=== PATIENT | female | born 1965 | race Caucasian/White ===

== ENCOUNTER 2017-12-26 16:53 | Emergency (ER) | payer BC ==
[~2017-12-26] VITALS: Ht 160 cm; Wt 78.0 kg
[2017-12-26 17:06] VITALS: BP 137/81; PULSE 98; RESP 17; TEMP 98.3; O2SAT 100
--- NOTE | 2017-12-26 17:43 | RADRPT ---
EXAM DATE/TIME: 12/26/2017 17:18 [place] COMPARISON: No previous studies available for comparison. INDICATIONS : Shortness of breath, cough, and syncope. MEDICAL HISTORY : None. SURGICAL HISTORY : None. ENCOUNTER: Initial ACUITY: 4 - 6 days PAIN SCORE: 2/10 LOCATION: Bilateral FINDINGS: PA and lateral views of the chest demonstrate the lungs to be symmetrically aerated without evidence of mass, infiltrate or effusion. The cardiomediastinal contours are unremarkable. Osseous structure s are intact. CONCLUSION: Normal examination. Neil Bruno MD on December 26, 2017 at 17:42 Board Certified Radiologist. This report was verified electronically.
[2017-12-26 17:53] LABS: AUTOMATED NEUTROPHIL # 10.6 TH/MM3 (1.8-7.7); BASOPHIL # 0.1 TH/MM3 (0-0.2); BASOPHIL % 0.6 % (0.0-2.0); EOSINOPHIL # 0.2 TH/MM3 (0-0.4); EOSINOPHIL % 1.1 % (0.0-4.0); HEMATOCRIT 43.1 % (35.0-46.0); LYMPH % 19.2 % (9.0-44.0); LYMPHOCYTE # 2.8 TH/MM3 (1.0-4.8); MEAN CELL VOLUME 86.7 FL (80.0-100.0); MEAN CORPUSCULAR HEMOGLOBIN 30.2 PG (27.0-34.0); MEAN CORPUSCULAR HGB CONC 34.8 % (32.0-36.0); MEAN PLATELET VOLUME 8.7 FL (7.0-11.0); MONO % 6.9 % (0.0-8.0); NEUT % 72.2 % (16.0-70.0); PLATELET COUNT 330 TH/MM3 (150-450); RED BLOOD COUNT 4.97 MIL/MM3 (4.00-5.30); RED CELL DISTRIBUTION WIDTH 13.4 % (11.6-17.2); WHITE BLOOD COUNT 14.7 TH/MM3 (4.0-11.0)
[2017-12-26 18:18] LABS: CALCIUM 9.3 MG/DL (8.5-10.1); CREATININE 0.86 MG/DL (0.50-1.00)
--- NOTE | 2017-12-26 18:49 | PD ---
HPI Chief Complaint: Medical Clearance Time Seen by Provider: 18:37 Travel History International Travel<30 days: No Contact w/Intl Traveler<30days: No Traveled to known affect area: No History of Present Illness HPI 52-year-old female complaining generalized malaise and weakness. Patient states the symptoms started several days ago. Patient denies any headache. Patient denies earache or sore throat. Patient denies any neck pain. Patient denies any coughing congestion. Patient denies any chest pain or shortness of breath. Patient denies abdominal pain. Patient denies any nausea vomiting diarrhea. Patient denies any dysuria or frequency. Patient denies any back pain. Patient denies any fever or chills. Patient states that she has good appetite. Patient was seen at local urgent care center and referred to ED for evaluation. Flu test was reported negative. Strep screen reportedly negative. Urine dipstick reportedly negative. PFSH Past Medical History Medical History: Denies Significant Hx ?: Unknown LMP: 12/09/17 Past Surgical History Surgical History: No Previous Surgery Social History Alcohol Use: No Tobacco Use: No Substance Use: No Allergies-Medications (Allergen,Severity, Reaction): Coded Allergies: miconazole (Verified Allergy, Intermediate, Rash, 12/26/17) Review of Systems General / Constitutional: No: Fever Eyes: No: Visual changes HENT: No: Headaches Cardiovascular: No: Chest Pain or Discomfort Respiratory: No: Shortness of Breath Gastrointestinal: No: Abdominal Pain Genitourinary: No: Dysuria Musculoskeletal: No: Pain Skin: No Rash Neurologic: No: Weakness Psychiatric: No: Depression Endocrine: No: Polydipsia Hematologic/Lymphatic: No: Easy Bruising Physical Exam Narrative GENERAL: Well-nourished, well-developed patient. SKIN: Focused skin assessment warm/dry. HEAD: Normocephalic. EYES: No scleral icterus. No injection or drainage. NECK: Supple, trachea midline. No JVD or lymphadenopathy. CARDIOVASCULAR: Regular rate and rhythm without murmurs, gallops, or rubs. RESPIRATORY: Breath sounds equal bilaterally. No accessory muscle use. GASTROINTESTINAL: Abdomen soft, non-tender, nondistended. MUSCULOSKELETAL: No cyanosis, or edema. BACK: Nontender without obvious deformity. No CVA tenderness. Neurologic exam normal. Data Data Last Documented VS Vital Signs Date Time Temp Pulse Resp B/P (MAP) Pulse Ox O2 Delivery O2 Flow Rate FiO2 12/26/17 18:34 16 12/26/17 17:06 98.3 98 137/81 (99) 100 Orders Orders Complete Blood Count With Diff (12/26/17 17:09) Basic Metabolic Panel (Bmp) (12/26/17 17:09) Chest, Pa & Lat (12/26/17 17:09) Urinalysis - C+S If Indicated (12/26/17 18:44) Labs Laboratory Tests Test 12/26/17 17:38 12/26/17 18:50 White Blood Count 14.7 TH/MM3 Red Blood Count 4.97 MIL/MM3 Hemoglobin 15.0 GM/DL Hematocrit 43.1 % Mean Corpuscular Volume 86.7 FL Mean Corpuscular Hemoglobin 30.2 PG Mean Corpuscular Hemoglobin Concent 34.8 % Red Cell Distribution Width 13.4 % Platelet Count 330 TH/MM3 Mean Platelet Volume 8.7 FL Neutrophils (%) (Auto) 72.2 % Lymphocytes (%) (Auto) 19.2 % Monocytes (%) (Auto) 6.9 % Eosinophils (%) (Auto) 1.1 % Basophils (%) (Auto) 0.6 % Neutrophils # (Auto) 10.6 TH/MM3 Lymphocytes # (Auto) 2.8 TH/MM3 Monocytes # (Auto) 1.0 TH/MM3 Eosinophils # (Auto) 0.2 TH/MM3 Basophils # (Auto) 0.1 TH/MM3 CBC Comment DIFF FINAL Differential Comment Blood Urea Nitrogen 10 MG/DL Creatinine 0.86 MG/DL Random Glucose 97 MG/DL Calcium Level 9.3 MG/DL Sodium Level 141 MEQ/L Potassium Level 3.9 MEQ/L Chloride Level 106 MEQ/L Carbon Dioxide Level 26.0 MEQ/L Anion Gap 9 MEQ/L Estimat Glomerular Filtration Rate 70 ML/MIN Urine Color YELLOW Urine Turbidity CLEAR Urine pH 6.5 Urine Specific [place] 1.014 Urine Protein NEG mg/dL Urine Glucose (UA) NEG mg/dL Urine Ketones NEG mg/dL Urine Occult Blood NEG Urine Nitrite NEG Urine Bilirubin NEG Urine Urobilinogen LESS THAN 2.0 MG/DL Urine Leukocyte Esterase NEG Urine RBC LESS THAN 1 /hpf Urine WBC 1 /hpf Urine Squamous Epithelial Cells 1 /hpf Urine Mucus FEW /lpf Microscopic Urinalysis Comment CULT NOT INDICATED MDM Medical Decision Making Medical Screen Exam Complete: Yes Emergency Medical Condition: Yes Interpretation(s) Last Impressions Chest X-Ray 12/26/17 2539 Signed Impressions: Service Date/Time: December 17:18 - CONCLUSION: Normal examination. Neil Bruno MD CBC WBC 14.7. 72 neutrophil. BMP within normal limits. Differential Diagnosis Differential diagnosis including viral syndrome, bronchitis, pneumonia, UTI, sepsis. Narrative Course 52-year-old female with generalized malaise and weakness. Patient has mild leukocytosis. No obvious source. I would try Levaquin and see patient back in about 2 days for recheck. Patient advised to return sooner if worsening condition. Diagnosis Primary Impression: Neutrophilic leukocytosis Patient Instructions: General Instructions Med/Other Pt SpecificInfo: Prescription(s) given Scripts Levofloxacin (Levaquin) 750 Mg Tablet 750 MG PO DAILY for Infection, #7 TAB 0 Refills Prov: Diomedes Scott MD 12/26/17 Disposition: 01 DISCHARGE HOME Condition: Stable Diomedes Scott MD Dec 26, 2017 18:49
[2017-12-26 19:04] LABS: BILIRUBIN, URINE NEG (NEG); BLOOD, URINE NEG (NEG); GLUCOSE,URINE NEG (NEG); KETONE, URINE NEG (NEG); MUCUS URINE FEW /lpf (OCC); NITRITE,URINE NEG (NEG); PH, URINE 6.5 (5.0-8.5); SQUAMOUS EPITHELIAL CELL URINE 1 /hpf (0-5); URINE COLOR YELLOW (YELLW/STRAW); URINE LEUKOCYTE ESTERASE NEG (NEG)
[2017-12-26] MEDS ORDERED: LEVA750T9 PO (19:21)
[2017-12-26] MEDS ORDERED: LEVOFLOXACIN 750 MG TAB PO ONE (19:30)
== END 2017-12-26 19:45 | disposition home or self-care (01) ==
LOC: NEPD 16:53
DX: D72.828 Other elevated white blood cell count (principal)
CPT/HCPCS: 71046; 80048; 81001; 85025; 99284